=== PATIENT | female | born 1955 | race Caucasian/White ===

== ENCOUNTER 2022-08-01 12:07 | Observation (INO) ==
--- NOTE | 2022-07-19 11:55 | PAT Medication Instructions ---
Medication Instructions Date of Service July 19, 2022 Home Medications aspirin 81 mg tablet,delayed release 81 mg PO Q2D cholecalciferol (vitamin D3) 125 mcg (5,000 unit) tablet (Vitamin D3) 125 mcg PO 2XWK icosapent ethyl 1 gram capsule (Vascepa) 2 g PO BID rosuvastatin 10 mg tablet (Crestor) 10 mg PO QPM ASK your prescriber and surgeon aspirin 81 mg tablet,delayed release 81 mg PO Q2D STOP taking 2 weeks before surgery (or as soon as possible if surgery is within 2 weeks) icosapent ethyl 1 gram capsule (Vascepa) 2 g PO BID DO NOT take the morning of surgery cholecalciferol (vitamin D3) 125 mcg (5,000 unit) tablet (Vitamin D3) 125 mcg PO 2XWK Take evening before surgery rosuvastatin 10 mg tablet (Crestor) 10 mg PO QPM Other Notes If you have any questions please call us at [phone] or [phone] or [phone] or [phone]
--- NOTE | 2022-07-22 15:23 | Anesthesiology Consultation ---
Date of Service July 22, 2022 Assessment & Plan (1) Encounter for pre-operative examination: - COVID screening: Per assessment on 07/22: No known COVID-19 positive contacts or current COVID-19 related symptoms. Travel screen negative. At surgeon discretion if preop Covid testing being done. - Outpatient joint assessment: Pt currently scheduled for inpatient pathway. If surgeon requests review for outpatient joint pathway, patient is acceptable candidate for outpatient joint program from anesthesia standpoint pending surgeon's office assessment of pt motivation/strong home support/completion of same day joint program preop requirements. - Check coags AM DOS (will recheck d/t elevated isolated PTT on preop labs) - Elevated isolated PTT: Preop labs 07/21/22 show elevated isolated PTT at 38.8 (only comparison labs in our system from 2012 show elevated isolated PTT as well in the 35-36 range). Case reviewed with Dr. Hawley. He feels ok to proceed as scheduled without further workup if surgeon okay as well (message sent to surgeon's office to make him aware). But additionally, Dr. Hawley recommends PCP made aware of preop findings and we inquire if suspected etiology/previous workup completed. Awaiting PCP response (Dr. Jones, [facility]). Chart Review Chart Review: Patient seen in Pre Admission Testing Teaching & Discussion Pre-Anesthesia Teaching/Discussion Notes: Instructed NPO after midnight before surgery,except medications with 15 cc of water. Medication instructions provided according to the PAT guidelines. History Surgery Operation Date: 08/01/22 14:35 Proposed Procedures p Right Reversed Total Shoulder Arthroplasty, Removal Anchors - Raulito Olvera MD Height/Weight Height: 5 ft 8 in Weight: 118 kg Allergies Allergy/AdvReac Type Severity Reaction Status Date / Time naproxen Allergy Severe Niacin in Verified 07/21/22 16:05 Naproxen- SOB, skin leathery, rapid HR niacin Allergy Severe SOB, Verified 07/21/22 16:05 leathery skin, rapid HR shellfish derived Allergy Severe Anaphylaxis, Verified 07/21/22 16:05 rash latex Allergy Mild Cracked Verified 07/21/22 16:05 skin with latex gloves Medications Home Medications Medication Instructions Recorded Confirmed Last Taken aspirin 81 mg tablet,delayed 81 mg PO Q2D 07/19/22 07/19/22 Unknown release cholecalciferol (vitamin D3) 125 125 mcg PO 2XWK 07/19/22 07/19/22 Unknown mcg (5,000 unit) tablet (Vitamin D3) icosapent ethyl 1 gram capsule 2 g PO BID 07/19/22 07/19/22 Unknown (Vascepa) rosuvastatin 10 mg tablet (Crestor) 10 mg PO QPM 07/19/22 07/19/22 Unknown Past Medical History Medical History Arthritis History of blood transfusion Post-op TKA (1998) Hyperlipidemia Neuropathy Feet Sleep apnea CPAP (compliant) Exercise / Class Metabolic Activity II 4-5 Yardwork/Stairs/Walk up hill Past Family History Family History Other No family history of adverse response to anesthesia Past Surgical History Surgical History H/O arthroscopic knee surgery RT/LEFT MULTIPLE TIMES History of appendectomy History of cholecystectomy History of colonoscopy History of fracture of femur RT - REPAIRED History of repair of rotator cuff RT History of tonsillectomy and adenoidectomy History of total knee replacement RT/LEFT X 3 WITH REVISIONS Meningioma REMOVED FROM UPPER BACK Nausea and vomiting after administration of anesthetic agent [place] teeth removed Past Anesthesia History No Hx of Anesthesia Complications (except PONV) and No Family Hx of Anesthesia Complications History of PONV History of PONV and Hx of Motion Sickness (Situational) Social History Smoking Status: Never smoker Do You Dip or Chew Tobacco: No Hx Alcohol Use: No substance use type: does not use Review of Systems Patient denies chest pain, shortness of breath, dyspnea on exertion, fever, chills, cough, wheezing, palpitations. Physical Exam Vital Signs VITALS BP 127/78 P 75 TEMP 98.1 SP02 96%RA RESP 16 PHYSICAL Full cervical extension range of motion. Full TMJ range of motion. TMD 3 finger breaths Mallampati Score 3 Dentition: intact, + upper front crown Lungs: clear throughout to auscultation Cardiac: regular rate and rhythm, no murmurs noted Spine: normal Carotid arteries: negative bruit Lab Results Anesthesia Preop Results Results Anesthesia Widget: WBC 4.88 K/ul (4.8-10.8) 07/22/22 Hgb 14.9 g/dl (12.0-16.0) 07/22/22 Hct 43.9 % (34.1-44.9) 07/22/22 Plt 207 K/uL (130-400) 07/22/22 Na 142 mmol/L (136-145) 07/22/22 K 3.9 mmol/L (3.5-5.1) 07/22/22 Cl 106 mmol/L (98-107) 07/22/22 CO2 29 mmol/L (21-32) 07/22/22 BUN 28 mg/dl (6-23) H 07/22/22 Creat 1.02 mg/dl (0.6-1.2) 07/22/22 Glucose Level 105 mg/dl (70-99(Fasting)) H 07/22/22 PT 10.6 Seconds (9.0-12.0) 07/22/22 PTT 38.8 Seconds (21.0-31.0) H 07/22/22 INR 1.0 (0.9-1.1) 07/22/22 HA1c 5.6 % (4.5-5.6) 07/22/22 Urine Color Yellow 07/22/22 Urine Appearance Clear (Clear) 07/22/22 Urine pH 6.0 (4.5-7.5) 07/22/22 Urine Specific [place] 1.019 (1.000-1.030) 07/22/22 Urine Protein Negative (Negative) 07/22/22 Urine Glucose (UA) Negative (Negative) 07/22/22 Urine Ketones Negative (Negative) 07/22/22 Urine Blood Negative (Negative) 07/22/22 Urine Nitrite Negative (Negative) 07/22/22 Urine Bilirubin Negative (Negative) 07/22/22 Urine Urobilinogen Negative (Negative) 07/22/22 Urine Leukocyte Esterase Negative (Negative) 07/22/22 Blood Type O Positive 07/22/22 Antibody Screen NEGATIVE 07/22/22 Testing Electrocardiogram Date: 07/22/22 NSR at 63bpm. Possible LAE. Chest X-Ray Date: 07/22/22 FINDINGS: PA and lateral chest radiographs are compared to study dated 09/19/2012. The heart is enlarged noting atherosclerotic calcification of the thoracic aorta. The pulmonary vasculature is noncongested. Chronic interstitial thickening is similar to previous. Mild scarring/atelectasis is seen at the lung bases. The lungs and pleural spaces are otherwise clear. There is no pneumothorax. The skeletal structures are osteopenic. The bony thorax appears intact. Degenerative change is noted in the shoulders and thoracic spine. Cholecystectomy clips are seen in the right upper quadrant. IMPRESSION: Cardiomegaly with no active disease in the chest. COVID-19 Risk Screen Screening Information COVID-19 Screen Date: 07/22/22 Exposure 21 Days Family/Household +COVID Last 21 Days: No Exposure 10 Days Any COVID Exposure Last 10 Days: No Symptoms Last 10 Days Experienced COVID Sx Last 10 Days: No + COVID 0-90 Days COVID + in Last 0-90 Days: No
--- NOTE | 2022-07-31 10:29 | History & Physical Report ---
Date of Service July 31, 2022 Assessment & Plan (1) Rotator cuff arthropathy of right shoulder: Plan: Treatment options discussed with the patient. She has failed conservative measures. Surgical intervention recommended. Risks, benefits and alternatives to surgery including but not limited to infection, DVT, pain, stiffness, need for revision surgery, damage to blood vessels, damage to nerves, PE, , were discussed with the patient and they wish to proceed. Plan on right reverse total shoulder arthroplasty scheduled for [facility] on August [address] Olvera. All questions were answered. Patient will follow up postop. History of Present Illness Chief Complaint: Right shoulder pain Primary Care Provider: Osorio Jones DO 67-year-old female with past medical history significant for sleep apnea, hyperlipidemia, neuropathy. Who presents with ongoing right shoulder pain. She has past history of rotator cuff repair. She has been having increasing pain interfering with her daily activities. She has failed conservative measures. Patient denies headaches, sweats, fevers, chills, double vision, blurred vision, cough, sore throat, dysphagia, chest pain, sob, wheezing, n/v/d/c, numbness, tingling, fatigue, urinary symptoms, mood disorders. ROS positive for right shoulder pain and stiffness. Allergies Allergy/AdvReac Type Severity Reaction Status Date / Time naproxen Allergy Severe Niacin in Verified 07/21/22 16:05 Naproxen- SOB, skin leathery, rapid HR niacin Allergy Severe SOB, Verified 07/21/22 16:05 leathery skin, rapid HR shellfish derived Allergy Severe Anaphylaxis, Verified 07/21/22 16:05 rash latex Allergy Mild Cracked Verified 07/21/22 16:05 skin with latex gloves Home Medications Medication Instructions Recorded Confirmed Type aspirin 81 mg tablet,delayed 81 mg PO Q2D 07/19/22 07/19/22 History release cholecalciferol (vitamin D3) 125 125 mcg PO 2XWK 07/19/22 07/19/22 History mcg (5,000 unit) tablet (Vitamin D3) icosapent ethyl 1 gram capsule 2 g PO BID 07/19/22 07/19/22 History (Vascepa) rosuvastatin 10 mg tablet (Crestor) 10 mg PO QPM 07/19/22 07/19/22 History Past Med/Surg History Medical History Arthritis History of blood transfusion Post-op TKA (1998) Hyperlipidemia Neuropathy Feet Sleep apnea CPAP () Surgical History H/O arthroscopic knee surgery RT/LEFT MULTIPLE TIMES History of appendectomy History of cholecystectomy History of colonoscopy History of fracture of femur RT - REPAIRED History of repair of rotator cuff RT History of tonsillectomy and adenoidectomy History of total knee replacement RT/LEFT X 3 WITH REVISIONS Meningioma REMOVED FROM UPPER BACK Nausea and vomiting after administration of anesthetic agent [place] teeth removed Family History Other No family history of adverse response to anesthesia Social History Smoking Status: Never smoker Second Hand Exposure: Yes ( A CHILD); Hx Alcohol Use: No Preferred Language: Vietnamese Headwaiter/Headwaitress Required: No Beliefs That Will Affect Care: None Current Living Situation: Spouse Feels Safe at Home: Yes Assistive Devices: CPAP and Glasses Review of Systems All systems reviewed & are unremarkable except as noted in HPI & below Physical Exam Constitutional: well developed and well nourished; no acute distress Eyes: PERRL, conjunctivae normal, anicteric sclerae ENMT: external ear and nose normal, oropharynx normal Neck: trachea midline, no thyromegaly Respiratory: normal respiratory effort, lungs clear to auscultation Cardiovascular: RRR, no murmur, no edema Musculoskeletal: Right shoulder: Crepitation with range of motion. There is diffuse tenderness. She has positive belly press. Positive impingement sign's. Painful range of motion with abduction to 70 degrees, forward flexion to 160 degrees passively and 80 degrees actively. Weakness with strength testing. 4+/5 external and internal rotation, 3+/5 abduction. Skin: no rashes, warm and dry Neurologic: patellar DTR's 2+ bilat, sensation intact Psychiatric: A+Ox3, euthymic affect Results & Data ([facility]) Diagnostic Findings Left shoulder radiographs demonstrate arthritic changes left shoulder. Shows postoperative changes consistent with prior arthroscopy. MRI demonstrates some partial tearing of her supraspinatus/full-thickness tearing with retraction of her subscapularis. She has full-thickness cartilage loss of her humeral head as well as partial thickness cartilage loss over the glenoid.
[~2022-08-01 12:07] MED LIST: ACETAMINOPHEN 500 MG TAB PO SCH; BUPIVACAINE 0.5 % 5 MG/1 ML PF 10ML VIAL ONE; CeleBREX 200 MG CAP PO SCH; FAMOTIDINE 20 MG TAB PO SCH; GABAPENTIN 300 MG CAP PO SCH; LIDOCAINE 2% MPF LOCAL 5 ML VIAL INFIL ONE; LR 15ML/HR IV SCH; METOCLOPRAMIDE HCL 10 MG TABLET PO SCH; MIDAZOLAM HCL 1 MG/ML 2ML VIAL ONE; ONDANSETRON INJ 2 MG/ML 2 ML VIAL ONE; PROPOFOL IV EMULSION 10 MG/ML 20 ML VIAL IV ONE; TRANEXAMIC ACID 1,000 MG **IV Intra-op IV SCH; TRANEXAMIC ACID 1,000 MG **IV Pre-op IV SCH; ceFAZolin 2000MG 2,000 MG/15 ML SYR IV SCH; dexAMETHasone 4 MG TAB PO SCH; fentaNYL citrate 100 MCG/2 ML VIAL ONE
[2022-08-01 13:13] LABS: Partial Thromboplastin Ratio 1.5; Partial Thromboplastin Time 41.5 Seconds (21.0-31.0); Prothrombin Time 10.6 Seconds (9.0-12.0)
--- NOTE | 2022-08-01 13:13 | History & Physical Bridge Note ---
Date of Service August 01, 2022 History & Physical Bridge Note I have examined the patient, reviewed the History & Physical and in the interval since the performance of the History & Physical I have noted the following changes of clinical significance: no changes noted
[2022-08-01] MEDS ORDERED: ATROPINE SULFATE 0.1 MG/ML 10ML SYR IV PRN (15:21)
[2022-08-01] MEDS ORDERED: fentaNYL citrate 100 MCG/2 ML VIAL IV PRN (15:21)
[2022-08-01] MEDS ORDERED: ePHEDrine sulfate 50 MG/ML AMP IV PRN (15:21)
[2022-08-01] MEDS ORDERED: ONDANSETRON INJ 2 MG/ML 2 ML VIAL IV PRN ×2 (15:21→18:44)
[2022-08-01] MEDS ORDERED: PROMETHAZINE HCL 6.25 MG in SODIUM CHLORIDE 0.9% 50 ML IV PRN (15:21)
[2022-08-01] MEDS ORDERED: ROCURONIUM BROMIDE 10 MG/ML 5 ML VIAL IV ONE (15:56)
[2022-08-01] MEDS ORDERED: fentaNYL citrate 100 MCG/2 ML VIAL ONE (16:34)
[2022-08-01] MEDS ORDERED: PROPOFOL IV EMULSION 10 MG/ML 20 ML VIAL IV ONE (17:41)
--- NOTE | 2022-08-01 18:05 | Operative Report ---
Post Operative Report Pre & Post Diagnosis Operation Date: 08/01/22 14:15 Pre-Op Diagnosis: Rotator cuff arthropathy of right shoulder posttraumatic failed rotator cuff repair with non repairable rotator cuff tear of the subscapularis tendon. Postoperative diagnosis: Same with biceps tendinopathy possible prior biceps tenodesis with grade 4 eburnated bone humeral head superior surface articulating with acromion and anterior subluxation of the humerus I identified the patient and participated in the time-out.: Yes Procedure Operation Date: 08/01/22 14:15 Actual Procedures p Right Reversed Total Shoulder Arthroplasty, Removal multiple suture anchors and suture material, biceps tenodesis (Right) - Raulito Olvera MD Surgeon Raulito Olvera MD Drill Rig Operator Helper Geoffrey PRINCE Estimated Blood Loss 75 Findings Consistent with Post-Op Diagnosis Specimens Humeral head cut Drains 2 Hemovac's Anesthesia Type General Regional Complications none Disposition Disposition: Recovery Room Indications 67-year-old female who had an injury to her right shoulder and has had chronic pain and weakness. Radiographs from osteoarthritis of the shoulder some proximal migration not [id number] on axillary view but anterior subluxation consistent with subscapularis weakness with MRI verifying large retracted nonrepairable subscapularis tendon tear intact supraspinatus and infraspinatus repairs but significant glenohumeral osteoarthritis. Description of Procedure The patient was taken to the operating room and anesthetized under regional block and general anesthetic. The patient was positioned on the operating table in a 30 beach chair position with a towel roll under the medial border of the right scapula. The arm was draped free to be able to manipulate the shoulder as needed. The right upper extremity was prepped and draped in usual sterile fashion. Exam demonstrated an obese heavy arm old scars from previous arthroscopic surgery full range of motion with some anterior subluxation. An anterior deltopectoral approach was performed. A longitudinal incision was made in the deltopectoral interval. The skin was incised sharply. Slightly larger than typical incision made due to her obesity. Subcutaneous flaps were elevated off the fascia. The cephalic vein was dissected out and retracted lateral with the deltoid. The clavipectoral fascia was significantly scarred and there was chronic tearing of the subscapularis tendon retraction medially with some inferior capsular tissue and subscapularis tissue intact still. The scarred subscapularis and capsular tissue was freed up from the conjoined tendon at the lateral margin of the conjoined tendon. A Vicryl traction suture was placed in position. It appeared that there was an upper intact retracted subscapularis tear and a split in the middle and then a lower tear. There was thickened bursa from prior surgery this was scarred typical postop scarring. The supraspinatus and infraspinatus tendon repairs were intact. Biceps tendon may have been tenodesed in the groove but there was tendinopathy of the proximal biceps at the tendon at the level of the pectoralis tendon look normal. At this level the biceps tendon was tenodesed to the pectoralis tendon and the proximal tendinopathic looking tissue up into the bicipital groove was all resected.. The upper centimeter of the pectoralis was released for inferior exposure. A self-retaining retractor was placed. Some the scarred bursal tissue was resected over the cuff and deltoid was freed up and bleeders were cauterized as necessary. The humeral head findings demonstrated exposed eburnated bone at the upper aspect of the humeral head and this was articulating with the acromion and possibly the coracoid. The glenoid still had articular cartilage in place. The inferior capsule that was still intact was taken down subperiosteally off the neck of the humerus staying on bone and then it gradually x-ray rotating humerus and releasing the capsule under direct visualization using Shields elevator to retract the capsule and then released some of the capsule in the neck so that the capsules were released off the neck of the humerus. A Fukuda retractor was then used to retract humeral head posteriorly. The labrum was resected. A capsular release staying on bone anteriorly was first performed using first electrocautery and then a Shields elevator and then placing a Bankart type retractor in place and then addressing the inferior and posterior inferior labrum which was released in a similar fashion after the labrum was resected there and then the capsule was released off of the glenoid staying on bone with electrocautery and using Shields elevator to release the triceps tendon and posterior inferior capsule.. Glenoid findings demonstrated intact articular cartilage some arthritic changes but no exposed bone. Attention was then taken to the humeral preparation. The cutting guide was placed into the humeral head. It was positioned at 20 of retroversion. Oscillating saw was used to resect the humeral head giving the cut above the level of the posterior rotator cuff insertion site. Multiple peek suture anchors and suture material removed from the humeral metaphysis greater tuberosity area in order to past the implants and repair of the humerus for the stem. The humerus was then prepared for the stem. I used the ascend flex stem from [employer]. The sizing broaches were used followed by trial broaches up to a size 4B long for the PTC stem which had the appropriate fit and fill. The appropriate sized cut protector was placed. The humerus was then retracted posterior to the glenoid. The glenoid was sized for a 25 baseplate. The guide for the baseplate was positioned in a 10 inferior tilt and the central drill hole was made. The reamer for the 25 baseplate was used. The central drill was widened for the peg. The 25 mm hydroxy apatite coated aequalis baseplate was impacted into position. The base plate was transfixed with superior and inferior locking screws and anterior and posterior compression screws with stable fixation. The fan reamer was used for the 36 millimeter glenoid sphere. After irrigation the 36 mm standard glenoid sphere was impacted onto the baseplate and the security screw was tightened. Attention was taken back to the humerus. The cut protector was removed and the plus 0 high offset humeral tray trial was assembled to the trial stem rotated appropriately to get bony coverage and then screwed in position. A trial reduction was performed. A +6 trial insert demonstrated good stability and no shuck. The trials were removed. 2 drill holes are made into the harder bone in the bicipital groove area and 2 #5 FiberWire sutures were placed transosseou sly. The canal was irrigated with antibiotic solution with pulsatile saline solution. The final component was assembled. The final component was 4B long PTC ascend flex stem assembled to the plus or high offset tray and a +6, 36 polyethylene reversed insert. This was then impacted into the humerus with a tight press-fit. It was reduced to the glenoid sphere. Stability was verified. The split between the superior subscapularis and the lower intact subscapularis was repaired so that I had 1 sheet of tissue to help act as a restraint for instability. Subscapularis remnant and capsular tissue was repaired with the #5 FiberWire sutures using Judah-Hussain suture technique. Lateral row soft tissue repair was performed with #2 FiberWire [id number] sutures. The pectoralis was repaired with #2 FiberWire [id number] sutures reinforcing the biceps tendon tenodesis. The arm was taken through a range of motion which demonstrated 140 degrees of flexion and 100 degrees of abduction and 70 degrees of internal and external rotation without any tension on repair and with no instability and no shuck. The wound was copiously irrigated. 2 Hemovac drains were placed. The deltopectoral interval was closed with [id number] #1 Vicryl sutures. The subcutaneous tissues were closed with 2-0 Vicryl sutures. The skin was closed with chance. Sterile dressings were applied and a shoulder immobilizer. Geoffrey PRINCE my physician veterinary assistant acted as mail handler assistant throughout the procedure .He performed functions including patient positioning, arm positioning, prepping and draping, soft tissue retraction, instrument management, suture management and performed the subcutaneous and skin closure and will participate in the postoperative care of the patient. I attest to the content of the Intraoperative Record and any orders documented therein. Any exceptions are noted below.
--- NOTE | 2022-08-01 18:14 | XRay Report ---
XR shoulder RT min 2V routine CLINICAL HISTORY: Post shoulder surgery TECHNIQUE: 2 views of the right shoulder were obtained. Comparison: None available at the time of this dictation. FINDINGS: Patient is status post shoulder arthroplasty with expected postsurgical changes including soft tissue swelling and subcutaneous emphysema. No periarticular lucency or hardware fracture is seen. IMPRESSION: Expected postoperative appearance status post placement of shoulder arthroplasty. ACT 112: Negative or not required by law. Electronically signed by: Bowen Renae M.D. 08/01/2022 6:12 PM
--- NOTE | 2022-08-01 18:39 | Anesthesiology Progress Note ---
Date of Service August 01, 2022 Anesthesia Post Procedure Vital Signs Vital Signs: Temp Pulse Resp BP BP Pulse Ox O2 Del Method 08/01/22 18:25 97.9 F 80 17 138/73 93 Nasal Cannula 08/01/22 18:15 75 20 140/75 94 Oxymask 08/01/22 18:05 88 18 134/75 94 Oxymask 08/01/22 17:57 97.3 F L 90 16 119/68 93 Oxymask 08/01/22 12:35 98.8 F 87 20 165/85 H 98 Room Air O2 Flow Rate 08/01/22 18:25 3 08/01/22 18:15 3 08/01/22 18:05 10 08/01/22 17:57 10 08/01/22 12:35 Transfer of Care Handoff Completed per policy Notes Mental Status: alert / awake / arousable and participated in evaluation Patient Amnestic to Procedure: Yes Nausea / Vomiting: adequately controlled Pain: adequately controlled Airway Patency, RR, SpO2: stable & adequate BP & HR: stable & adequate Hydration State: stable & adequate Anesthetic Complications: no major complications apparent and Pt Satisfied with anesthetic care Notes: Right eye ptosis no blurry vision, pt reassured d/t block and should resolve when block wears off
[2022-08-01] MEDS ORDERED: NALOXONE HCL 0.4 MG/1 ML VIAL/CARP IV PRN (18:44)
[2022-08-01] MEDS ORDERED: bisacodyL 10 MG SUPP PR PRN (18:44)
[2022-08-01] MEDS ORDERED: HYDROmorphone INJ 0.5 MG/0.5 ML SYR IV PRN (18:44)
[2022-08-01] MEDS ORDERED: ASPIRIN 81 MG ECTAB PO SCH (18:44)
[2022-08-01] MEDS ORDERED: METOCLOPRAMIDE HCL INJ 5 MG/ML 2 ML VIAL IV PRN (18:44)
[2022-08-01] MEDS ORDERED: oxyCODONE HCL IR 5 MG TAB (IMMEDIATE RELEASE) PO PRN (18:44)
[2022-08-01] MEDS ORDERED: MAGNESIUM HYDROXIDE SUSP 30 ML UDC PO PRN (18:44)
[2022-08-01] MEDS ORDERED: CHOLECALCIFEROL 5,000 UNITS 125 MCG TAB PO SCH (19:00)
[2022-08-01] MEDS: SODIUM CHLORIDE 0.9% 1000ML 1,000 ML IV SCH (19:52)
[2022-08-01] MEDS: DOCUSATE SODIUM 100 MG CAP PO SCH (20:04)
[2022-08-01] MEDS ORDERED: ROSUVASTATIN CALCIUM 10 MG TAB PO SCH (21:00)
[2022-08-01] MEDS ORDERED: SENNA 8.6 MG TAB PO SCH (21:00)
[2022-08-01] MEDS: ceFAZolin 2000MG 2,000 MG/15 ML SYR IV SCH (22:09)
[2022-08-01] MEDS: ACETAMINOPHEN 500 MG TAB PO SCH (22:09)
[2022-08-02] MEDS: SODIUM CHLORIDE 0.9% 1000ML 1,000 ML IV SCH (06:01)
[2022-08-02] MEDS: ACETAMINOPHEN 500 MG TAB PO SCH ×2 (06:03→13:32)
[2022-08-02] MEDS: ceFAZolin 2000MG 2,000 MG/15 ML SYR IV SCH (06:04)
[2022-08-02 07:46] LABS: Basophils # (auto) 0.02 K/uL (0-0.2); Basophils % (auto) 0.3 %; Eosinophils # (auto) 0.02 K/uL (0-0.50); Eosinophils % (auto) 0.3 %; Hematocrit (blood only) 37.7 % (34.1-44.9); Hemoglobin 12.8 g/dl (12.0-16.0); Immature Granulocytes # (auto) 0.02 K/uL (0.00-0.02); Immature Granulocytes % (auto) 0.3 %; Lymphocytes # (auto) 1.19 K/uL (1.2-3.4); Lymphocytes % (auto) 17.7 %; Mean Corpuscular Hemoglobin 32.4 pg (25.0-34.0); Mean Corpuscular Volume 95.4 fL (80.0-100.0); Mean Platelet Volume 10.2 fL (9.4-12.3); Monocytes # (auto) 0.65 K/uL (0.24-0.82); Monocytes % (auto) 9.7 %; Neutrophils # (auto) 4.83 K/uL (1.4-6.5); Neutrophils % (auto) 71.7 %; Platelet Count 202 K/uL (130-400); RDW Coefficient of Variation 13.7 % (11.5-14.5); Red Blood Count 3.95 M/uL (3.93-5.22); White Blood Count 6.73 K/ul (4.8-10.8)
[2022-08-02 08:11] LABS: BUN Creatinine Ratio 18.8 (10-20); Calcium 8.5 mg/dl (8.5-10.1); Est GFR (African American) 70.4 ml/min; Est GFR (Non-African American) 60.8 ml/min
[2022-08-02] MEDS: DOCUSATE SODIUM 100 MG CAP PO SCH (08:50)
--- NOTE | 2022-08-02 10:00 | Orthopedic Progress Note ---
Date of Service August 02, 2022 Assessment & Plan (1) Rotator cuff arthropathy of right shoulder: Plan: POD #1 s/p Right Reversed Total Shoulder Arthroplasty, Removal multiple suture anchors and suture material, biceps tenodesis pt/ot- given detailed HEP f/u in office in 2 weeks pain well controlled d/c home later today Admission and Anticipated Discharge Date Admission Date: August 01, 2022 Subjective POD #1 s/p Right Reversed Total Shoulder Arthroplasty, Removal multiple suture anchors and suture material, biceps tenodesis Review of Systems Constitutional: no fever and no chills Respiratory: no cough and no dyspnea Cardiovascular: no chest pain, no dyspnea and no orthopnea Gastrointestinal: no abdominal pain, no nausea and no vomiting Physical Exam Physical Exam: Vital Signs Temp 37.0 C 08/02/22 08:05 Pulse 73 08/02/22 08:05 Resp 20 08/02/22 08:05 BP 119/71 08/02/22 08:05 Pulse Ox 93 08/02/22 08:05 O2 Del Method 08/02/22 08:05 O2 Flow Rate 2 08/01/22 21:30 Intake & Output 08/01/22 08/02/22 08/02/22 18:59 06:59 18:59 Intake Total 2400 / 3625 1225 / 3625 100 / 100 Output Total 75 / 75 Balance 2325 / 3550 1225 / 3550 100 / 100 Weight 115.8 kg Intake: IV 1100 / 1825 725 / 1825 100 / 100 Lactated Ringe r's 1,000 ml @ 15 1000 / 1000 mls/hr IV .Q24 H MALAIKA Rx#: [id number] Sodium Chlorid e 0.9% 1000ML 1, 725 / 725 000 ml @ 100 m ls/hr IV .Q10H MALAIKA Rx#:[id number] Tranexamic Aci d / 0.7% NaCl 1, 100 / 100 100 / 100 000 mg In 100 ml @ 600 mls/hr IV TODAY@0600 MALAIKA Rx#:[id number] IV Perioperative 1300 / 1300 Oral 500 / 500 Output: Estimated Blood Loss 75 / 75 Other: # Unmeasured Voi ds 1 Weight Measureme nt Method Standing Scale Musculoskeletal: Right shoulder: dressing clean and dry, arm resting in sling. rad+2, uln/med/rad nerves intact Results & Data ([place]) Vital Signs (Past 12 Hours) Vital Signs Temp Pulse Resp BP Pulse Ox O2 Del Method 08/02/22 08:05 37.0 C 73 20 119/71 93 Room Air 08/02/22 04:47 36.8 C 70 18 114/71 92 Room Air 08/02/22 01:14 36.7 C 80 20 130/81 93 Room Air Laboratory Results Laboratory Results WBC 6.73 K/ul (4.8-10.8) 08/02/22 07:07 RBC 3.95 M/uL (3.93-5.22) 08/02/22 07:07 Hgb 12.8 g/dl (12.0-16.0) 08/02/22 07:07 Hct 37.7 % (34.1-44.9) 08/02/22 07:07 MCV 95.4 fL (80.0-100.0) 08/02/22 07:07 MCH 32.4 pg (25.0-34.0) 08/02/22 07:07 MCHC 34.0 g/dL (32.0-36.0) 08/02/22 07:07 RDW Std Deviation 48.0 fL (36.4-46.3) H 08/02/22 07:07 RDW Coeff of Lakshmi 13.7 % (11.5-14.5) 08/02/22 07:07 Plt Count 202 K/uL (130-400) 08/02/22 07:07 MPV 10.2 fL (9.4-12.3) 08/02/22 07:07 Immature Gran % (Auto) 0.3 % 08/02/22 07:07 Neut % (Auto) 71.7 % 08/02/22 07:07 Lymph % (Auto) 17.7 % 08/02/22 07:07 Sebastian % (Auto) 9.7 % 08/02/22 07:07 Eos % (Auto) 0.3 % 08/02/22 07:07 Baso % (Auto) 0.3 % 08/02/22 07:07 Neut # (Auto) 4.83 K/uL (1.4-6.5) 08/02/22 07:07 Lymph # (Auto) 1.19 K/uL (1.2-3.4) L 08/02/22 07:07 Sebastian # (Auto) 0.65 K/uL (0.24-0.82) 08/02/22 07:07 Eos # (Auto) 0.02 K/uL (0-0.50) 08/02/22 07:07 Baso # (Auto) 0.02 K/uL (0-0.2) 08/02/22 07:07 Immature Gran # (Auto) 0.02 K/uL (0.00-0.02) 08/02/22 07:07 PT 10.6 Seconds (9.0-12.0) 08/01/22 12:51 INR 1.0 (0.9-1.1) 08/01/22 12:51 APTT 41.5 Seconds (21.0-31.0) H 08/01/22 12:51 PTT Ratio 1.5 08/01/22 12:51 Sodium 140 mmol/L (136-145) 08/02/22 07:07 Potassium 4.0 mmol/L (3.5-5.1) 08/02/22 07:07 Chloride 108 mmol/L (98-107) H 08/02/22 07:07 Carbon Dioxide 29 mmol/L (21-32) 08/02/22 07:07 Anion Gap 3 (3-11) 08/02/22 07:07 BUN 18 mg/dl (6-23) 08/02/22 07:07 Creatinine 0.96 mg/dl (0.6-1.2) 08/02/22 07:07 Est Cr Clr Drug Dosing 75.0 ml/min 08/02/22 07:07 Est GFR ( Amer) 70.4 ml/min 08/02/22 07:07 Est GFR (Non-Af Amer) 60.8 ml/min 08/02/22 07:07 BUN/Creatinine Ratio 18.8 (10-20) 08/02/22 07:07 Glucose 111 mg/dl (70-99(Fasting)) H 08/02/22 07:07 Calcium 8.5 mg/dl (8.5-10.1) 08/02/22 07:07 SARS-CoV-2, RNA, NAAT NEGATIVE (NEGATIVE) 08/01/22 12:22 Impressions Shoulder X-Ray 08/01/22 17:02 XR shoulder RT min 2V routine CLINICAL HISTORY: Post shoulder surgery TECHNIQUE: 2 views of the right shoulder were obtained. Comparison: None available at the time of this dictation. FINDINGS: Patient is status post shoulder arthroplasty with expected postsurgical changes including soft tissue swelling and subcutaneous emphysema. No periarticular lucency or hardware fracture is seen. IMPRESSION: Expected postoperative appearance status post placement of shoulder arthroplasty. ACT 112: Negative or not required by law. Electronically signed by: Bowen Renae M.D. 08/01/2022 6:12 PM
--- NOTE | 2022-08-03 14:00 | Discharge Summary ---
Date of Service August 03, 2022 Admission HPI Per Admitting Provider 67-year-old female with past medical history significant for sleep apnea, hyperlipidemia, neuropathy. Who presents with ongoing right shoulder pain. She has past history of rotator cuff repair. She has been having increasing pain interfering with her daily activities. She has failed conservative measures. Patient denies headaches, sweats, fevers, chills, double vision, blurred vision, cough, sore throat, dysphagia, chest pain, sob, wheezing, n/v/d/c, numbness, tingling, fatigue, urinary symptoms, mood disorders. ROS positive for right shoulder pain and stiffness. Admission Exam Per Admitting Provider Physical Exam Constitutional: well developed and well nourished; no acute distress Eyes: PERRL, conjunctivae normal, anicteric sclerae ENMT: external ear and nose normal, oropharynx normal Neck: trachea midline, no thyromegaly Respiratory: normal respiratory effort, lungs clear to auscultation Cardiovascular: RRR, no murmur, no edema Musculoskeletal: Right shoulder: Crepitation with range of motion. There is diffuse tenderness. She has positive belly press. Positive impingement sign's. Painful range of motion with abduction to 70 degrees, forward flexion to 160 degrees passively and 80 degrees actively. Weakness with strength testing. 4+/5 external and internal rotation, 3+/5 abduction. Skin: no rashes, warm and dry Neurologic: patellar DTR's 2+ bilat, sensation intact Psychiatric: A+Ox3, euthymic affect Principal Diagnosis Right Rotator Cuff Arthropathy Discharge Data Allergies Allergy/AdvReac Type Severity Reaction Status Date / Time naproxen Allergy Severe Niacin in Verified 08/01/22 12:32 Naproxen- SOB, skin leathery, rapid HR niacin Allergy Severe SOB, Verified 08/01/22 12:32 leathery skin, rapid HR shellfish derived Allergy Severe Anaphylaxis, Verified 08/01/22 12:32 rash latex Allergy Mild Cracked Verified 08/01/22 12:32 skin with latex gloves Procedures Performed Operation Date: 08/01/22 14:15 Actual Procedures p Right Reversed Total Shoulder Arthroplasty, Removal Anchors(Right) - Raulito Olvera MD Ordered Studies 08/01/22 05:00 US - OR guided needle placemen Routine Hospital Course (1) Rotator cuff arthropathy of right shoulder: Patient:CAMILO REILLY Admit Date:08/01/22 MR#:[id number] Att Phy:Raulito Olvera M.D. Acct ID:[id number] Edith Phy:Osorio Jones DO Date:1955 Fam Phy: Age:67 Location:3N Sex:F Room/Bed:[facility] cc: ~ *NOTICE TO RECEIVING REPUBLICAN/AGENCY This information is strictly Confidential and protected under [place] law. [place] law prohibits you from making any further disclosure of this information unless further disclosure is expressly permitted by the written consent of the person to whom it pertains or is authorized by law. A general authorization for the release of medical or other information is not sufficient for this purpose. Hospital accepts no responsibility if the information is made available to any other person, INCLUDING THE PATIENT. Date of Service August 02, 2022 Assessment & Plan (1) Rotator cuff arthropathy of right shoulder: Plan: POD #1 s/p Right Reversed Total Shoulder Arthroplasty, Removal multiple suture anchors and suture material, biceps tenodesis pt/ot- given detailed HEP f/u in office in 2 weeks pain well controlled d/c home later today Admission and Anticipated Discharge Date Admission Date: August 01, 2022 Subjective POD #1 s/p Right Reversed Total Shoulder Arthroplasty, Removal multiple suture anchors and suture material, biceps tenodesis Review of Systems Constitutional: no fever and no chills Respiratory: no cough and no dyspnea Cardiovascular: no chest pain, no dyspnea and no orthopnea Gastrointestinal: no abdominal pain, no nausea and no vomiting Physical Exam Physical Exam: Vital Signs Temp 37.0 C 08/02/22 08:05 Pulse 73 08/02/22 08:05 Resp 20 08/02/22 08:05 BP 119/71 08/02/22 08:05 Pulse Ox 93 08/02/22 08:05 O2 Del Method 08/02/22 08:05 O2 Flow Rate 2 08/01/22 21:30 Intake & Output 08/01/22 08/02/22 08/02/22 18:59 06:59 18:59 Intake Total 2400 / 3625 1225 / 3625 100 / 100 Output Total 75 / 75 Balance 2325 / 3550 1225 / 3550 100 / 100 Weight 115.8 kg Intake: IV 1100 / 1825 725 / 1825 100 / 100 Lactated Ringe r's 1,000 ml @ 15 1000 / 1000 mls/hr IV .Q24 H MALAIKA Rx#: [id number] Sodium Chlorid e 0.9% 1000ML 1, 725 / 725 000 ml @ 100 m ls/hr IV .Q10H MALAIKA Rx#:[id number] Tranexamic Aci d / 0.7% NaCl 1, 100 / 100 100 / 100 000 mg In 100 ml @ 600 mls/hr IV TODAY@0600 MALAIKA Rx#:[id number] IV Perioperative 1300 / 1300 Oral 500 / 500 Output: Estimated Blood Loss 75 / 75 Other: # Unmeasured Voi ds 1 Weight Measureme nt Method Standing Scale Musculoskeletal: Right shoulder: dressing clean and dry, arm resting in sling. rad+2, uln/med/rad nerves intact Results & Data ([facility]) Vital Signs (Past 12 Hours) Vital Signs Temp Pulse Resp BP Pulse Ox O2 Del Method 08/02/22 08:05 37.0 C 73 20 119/71 93 Room Air 08/02/22 04:47 36.8 C 70 18 114/71 92 Room Air 08/02/22 01:14 36.7 C 80 20 130/81 93 Room Air Laboratory Results Laboratory Results WBC 6.73 K/ul (4.8-10.8) 08/02/22 07:07 RBC 3.95 M/uL (3.93-5.22) 08/02/22 07:07 Hgb 12.8 g/dl (12.0-16.0) 08/02/22 07:07 Hct 37.7 % (34.1-44.9) 08/02/22 07:07 MCV 95.4 fL (80.0-100.0) 08/02/22 07:07 MCH 32.4 pg (25.0-34.0) 08/02/22 07:07 MCHC 34.0 g/dL (32.0-36.0) 08/02/22 07:07 RDW Std Deviation 48.0 fL (36.4-46.3) H 08/02/22 07:07 RDW Coeff of Lakshmi 13.7 % (11.5-14.5) 08/02/22 07:07 Plt Count 202 K/uL (130-400) 08/02/22 07:07 MPV 10.2 fL (9.4-12.3) 08/02/22 07:07 Immature Gran % (Auto) 0.3 % 08/02/22 07:07 Neut % (Auto) 71.7 % 08/02/22 07:07 Lymph % (Auto) 17.7 % 08/02/22 07:07 [place] % (Auto) 9.7 % 08/02/22 07:07 Eos % (Auto) 0.3 % 08/02/22 07:07 Baso % (Auto) 0.3 % 08/02/22 07:07 Neut # (Auto) 4.83 K/uL (1.4-6.5) 08/02/22 07:07 Lymph # (Auto) 1.19 K/uL (1.2-3.4) L 08/02/22 07:07 [place] # (Auto) 0.65 K/uL (0.24-0.82) 08/02/22 07:07 Eos # (Auto) 0.02 K/uL (0-0.50) 08/02/22 07:07 Baso # (Auto) 0.02 K/uL (0-0.2) 08/02/22 07:07 Immature Gran # (Auto) 0.02 K/uL (0.00-0.02) 08/02/22 07:07 PT 10.6 Seconds (9.0-12.0) 08/01/22 12:51 INR 1.0 (0.9-1.1) 08/01/22 12:51 APTT 41.5 Seconds (21.0-31.0) H 08/01/22 12:51 PTT Ratio 1.5 08/01/22 12:51 Sodium 140 mmol/L (136-145) 08/02/22 07:07 Potassium 4.0 mmol/L (3.5-5.1) 08/02/22 07:07 Chloride 108 mmol/L (98-107) H 08/02/22 07:07 Carbon Dioxide 29 mmol/L (21-32) 08/02/22 07:07 Anion Gap 3 (3-11) 08/02/22 07:07 BUN 18 mg/dl (6-23) 08/02/22 07:07 Creatinine 0.96 mg/dl (0.6-1.2) 08/02/22 07:07 Est Cr Clr Drug Dosing 75.0 ml/min 08/02/22 07:07 Est GFR ( Amer) 70.4 ml/min 08/02/22 07:07 Est GFR (Non-Af Amer) 60.8 ml/min 08/02/22 07:07 BUN/Creatinine Ratio 18.8 (10-20) 08/02/22 07:07 Glucose 111 mg/dl (70-99(Fasting)) H 08/02/22 07:07 Calcium 8.5 mg/dl (8.5-10.1) 08/02/22 07:07 SARS-CoV-2, RNA, NAAT NEGATIVE (NEGATIVE) 08/01/22 12:22 Impressions Shoulder X-Ray 08/01/22 17:02 XR shoulder RT min 2V routine CLINICAL HISTORY: Post shoulder surgery TECHNIQUE: 2 views of the right shoulder were obtained. Comparison: None available at the time of this dictation. FINDINGS: Patient is status post shoulder arthroplasty with expected postsurgical changes including soft tissue swelling and subcutaneous emphysema. No periarticular lucency or hardware fracture is seen. IMPRESSION: Expected postoperative appearance status post placement of shoulder arthroplasty. ACT 112: Negative or not required by law. Electronically signed by: Bowen Renae M.D. 08/01/2022 6:12 PM Signed By: <Electronically signed by Prakash Alfaro PA-C> Total Time Total Time Spent Total Time Spent (In Minutes): 5 Discharge Plan Discharge Items Patient Disposition: Home - Self-Care Reason For Visit: Right Shoulder Rotator Cuff Arthropathy Discharge Diagnosis: Right Shoulder Rotator Cuff Arthropathy Condition on Discharge: Good Activity: Per Instructions section Non-emergency contact: Surgeon Call non-emergency contact if: you have any medication questions, your pain is not controlled, your temperature is above 101.5, your wound has increased redness and your wound has increased drainage Follow-up/Referrals: Raulito Olvera MD [Surgeon] - (Follow up with Dr. Olvera or his PA in 2 weeks for your first post operative visit. ) Osorio Jones, [Primary Care Provider] - Diet: Regular Addtl Attending Provider Instructions: ACTIVITY RECOMMENDATIONS: SELF CARE INSTRUCTIONS AFTER TOTAL SHOULDER ARTHROPLASTY REVERSE A. You may do daily exercises as taught in physical therapy while in hospital. No lifting with the operative arm. B. You are to wear your sling/immobilizer at all times EXCEPT when performing your daily exercises and for hygiene purposes. C. You may perform dry, daily dressing changes. Please keep your incision covered. You may shower 48 hours after surgery. Do not apply soap or any ointment/lotions directly over incision. Do not soak incision in bath tub/swimming pool. D. You may use ice as needed to operative shoulder. SPECIAL CARE INSTRUCTIONS: VERY IMPORTANT TO READ AND REVIEW A. There are a few signs you need to watch for after you are home. Call [facility] at [phone] if you experience any of the followin. Increased severe shoulder pain. Some pain is expected especially when you exercise. 2. Increased swelling in you shoulder or arm; pain or swelling in either upper extremity. 3. Any fluid drainage from the incision. 4. Shortness of breath or chest pain. B. Please call [facility] at [phone] if you have any questions or concerns about your operation or recovery. C. Call your physician if: 1. Temperature is greater than 101 degrees (F). 2. Pain is not relieved by prescribed pain medications. 3. Increase drainage or redness from incision. 4. Unanswered questions or concerns. FOLLOW UP VISIT: Please call [facility] at [phone] to schedule a follow up appointment with Dr. Olvera or his PA in 12-14 days from your surgery date. Pending Studies at Discharge: No Stand-Alone Forms: My [facility] [employer], Smoking Cessation Medications and DC Order Prescriptions: New acetaminophen [Tylenol Extra Strength] 500 mg Tablet 1,000 mg PO Q8 21 Days Qty: 126 0RF oxycodone 5 mg Tablet 5 - 10 mg PO Q6H PRN (Reason: pain) Qty: 30 0RF Rx Instructions: ongoing therapy, supervising dr stephenie olvera, max 6 tabs in 24 hours docusate sodium 100 mg Capsule 100 mg PO BID 10 Days Qty: 20 0RF cefadroxil 500 mg capsule 500 mg PO BID 14 Days Qty: 28 0RF Continued aspirin 81 mg Tablet,Delayed Release (Dr/Ec) 81 mg PO Q2D rosuvastatin [Crestor] 10 mg Tablet 10 mg PO QPM cholecalciferol (vitamin D3) [Vitamin D3] 125 mcg (5,000 unit) Tablet 125 mcg PO 2XWK Label Comments: MONDAY AND MONDAY icosapent ethyl [Vascepa] 1 gram Capsule 2 g PO BID Discharge Orders: Discharge Order (Routine); Ordered 08/02/22 Ordered By: Prakash Stoll/Other Patient Handouts: DVT Post Op Prevention, Shoulder Replacement Surg Recovery Admission Data Admit Date/Time: 08/01/22 17:02 Attending Provider: Raulito Olvera Admit Provider: Raulito Olvera Primary Care Provider: Osorio Jones Other Interventions: Discharge Summary Assessment (RN) Last Done: 08/02/22 12:41
== END 2022-08-02 13:59 | disposition home or self-care (01) ==
LOC: ASU 12:07 → INTOOBSV 17:02 → 3N 17:02